=== PATIENT | female | born 1985 ===

== ENCOUNTER 2023-12-07 16:12 | Outpatient (CLI) | payer MEDICAID, SELFPAY ==
[2023-12-07 17:13] LABS: Abs Immature Grans 0.03 10^3/uL (0.0-0.06); Absolute Basophil Count 0.03 10^3/uL (0.0-0.2); Absolute Lymphocyte Count 2.33 10^3/uL (1.2-3.4); Absolute Monocyte Count 0.37 10^3/uL (0.1-0.8); Absolute Neutrophil Count 4.78 10^3/uL (1.2-6.7); Basophils % 0.4; Eosinophils % 3.8; HCT 37.5 % (36.0-46.0); HGB 13.2 g/dL (11.2-15.7); Immature Grans % 0.4; Lymphocytes % 29.7; MCHC 35.2 % (32.0-36.0); MCV 94 fL (80-95); MPV 9.3 fL (8.0-11.0); Monocytes % 4.7; Platelet Count 256 10^3/uL (130-400); RDW 11.6 % (11.7-14.6); RDW-SD 39.5 fL; WBC 7.84 10^3/uL (4.4-10.8)
[2023-12-07 18:07] LABS: Lithium 0.3 mmol/l (0.6-1.2)
[2023-12-07 18:25] LABS: ALT 26 U/L (14-59); AST 20 U/L (15-37); Albumin 4.2 g/dL (3.4-5.0); Alkaline Phosphatase 62 U/L (46-116); Anion Gap 8.8 mmol/L (3-11); BUN 6 mg/dL (7-18); Bilirubin, Total 0.5 mg/dL (0.2-1.0); CO2 28.2 mmol/L (21.0-32.0); CREATININE 0.8 mg/dL (0.55-1.02); Calcium 8.9 mg/dL (8.5-10.1); Chloride 102 mmol/L (98-107); Estimated GFR 95.46 (mL/min/1.73m2); FREE T4 1.11 ng/dL (0.76-1.46); Glucose 80 mg/dL (74-106); Potassium 3.7 mmol/L (3.5-5.1); Sodium 139 mmol/L (136-145); TSH 0.06 uIU/Ml (0.36-3.74); Total Protein 7.1 g/dL (6.4-8.2)
[2023-12-08 18:07] LABS: T3,Free 4.8 pg/mL (2.8-5.3)
== END 2023-12-07 16:13 | disposition home or self-care (01) ==
LOC: LBO 12-08 16:15
PROVIDERS: Visit Provider Naturopath
DX: E06.3 Autoimmune thyroiditis (principal); F31.81 Bipolar II disorder
CPT/HCPCS: 36415; 80053; 80178; 84439; 84443; 84481; 85025